=== PATIENT | female | born 1980 | race Caucasian/White ===

== ENCOUNTER → 2018-05-27 | Outpatient (CLI) | payer BC ==
[2018-05-27 13:48] LABS: BASOPHILS % 0.6 % (0.0-2.0); EOSINOPHILS % 1.3 % (0.0-5.0); HEMATOCRIT. 38.4 % (36.0-48.0); HEMOGLOBIN. 13.1 g/dL (12.0-16.0); LYMPHOCYTES % 24.5 % (20.0-50.0); MEAN CORPUSCULAR HEMOGLOBIN 31.5 pg (28.0-32.0); MEAN CORPUSCULAR VOLUME 92.3 fL (81.0-99.0); MEAN PLATELET VOLUME 7.3 fl (7.4-10.4); MONOCYTES % 5.7 % (2.0-8.0); NEUTROPHILS % 67.9 % (40.0-76.0); PLATELET 278 x1000/uL (130-400); RED BLOOD CELL COUNT 4.16 mill/uL (4.2-5.4); RED CELL DISTRIBUTION WIDTH 12.7 % (11.6-14.6)
[2018-05-27 13:51] LABS: CLARITY URINE CLEAR (CLEAR); COLOR URINE YELLOW (YELLOW); KETONES URINE NEGATIVE (NEGATIVE); LEUKOCYTE ESTERASE URINE NEGATIVE (NEGATIVE); NITRITE URINE NEGATIVE (NEGATIVE); OCCULT BLOOD URINE NEGATIVE (NEGATIVE); PROTEIN URINE NEGATIVE (NEGATIVE); UROBILINOGEN URINE 0.2 E.U./dL (0.2-1.0)
[2018-05-27 13:58] LABS: CHLORIDE 107 mEq/L (98-107)
[2018-05-27 14:05] LABS: LDL CHOLESTEROL 112 mg/dL (5-100)
[2018-05-27 14:06] LABS: HDL CHOLESTEROL 54 mg/dL (40-59)
[2018-05-27 14:07] LABS: T4 FREE 0.87 ng/dL (0.76-1.46)
[2018-05-28 09:06] LABS: VITAMIN D 25-OH 18.4 ng/mL (30.0-100.0)
[2018-05-28 13:11] LABS: HIV SCREEN 4G Non Reactive (Non Reactive)
== END | disposition home or self-care (01) ==
LOC: LAB 13:05
DX: Z00.01 Encounter for general adult medical examination with abnormal findings (principal)
CPT/HCPCS: 36415; 80061; 82306; 83036; 84439; 84443; 86592; 87389

== ENCOUNTER → 2021-01-17 | Outpatient (CLI) | payer BC | END | disposition home or self-care (01) | LOC: MAMMO 10:55 | DX: Z12.31 Encounter for screening mammogram for malignant neoplasm of breast (principal) | CPT/HCPCS: 77063; 77067 ==

== ENCOUNTER 2021-07-03 18:57 | Emergency (ER) | payer OTHER, BC ==
[~2021-07-03] VITALS: Ht 167.6 cm; Wt 63.5 kg
[2021-07-03] MEDS ORDERED: HEPATITIS B IMMUNE GLOBULIN 220 UNIT/ML IM ONE (19:30)
[2021-07-03] MEDS ORDERED: RALT400T PO (19:39)
[2021-07-03] MEDS ORDERED: EMTR1TAB11 MT (19:39)
[2021-07-03] MEDS ORDERED: EMTRICITABINE 200MG CAPSULE PO ONE (19:45)
[2021-07-03] MEDS ORDERED: RALTEGRAVIR 400MG TABLET PO ONE (19:45)
[2021-07-03] MEDS ORDERED: TENOFOVIR 300MG TABLET PO ONE (19:45)
[2021-07-03 19:46] VITALS: BP 125/76
== END 2021-07-03 22:04 | disposition home or self-care (01) ==
LOC: ER 18:57
DX: Z20.5 Contact with and (suspected) exposure to viral hepatitis (principal); S61.231A Puncture wound without foreign body of left index finger without damage to nail, initial encounter; W46.1XXA Contact with contaminated hypodermic needle, initial encounter; Y93.89 Activity, other specified; Y92.238 Other place in hospital as the place of occurrence of the external cause; Y99.0 Civilian activity done for income or pay
CPT/HCPCS: 90371; 99283

== ENCOUNTER → 2022-09-18 | Outpatient (CLI) | payer BC ==
[~2022-09-18] MED LIST: EMTR1TAB11 MT; RALT400T PO
[2022-09-18 10:49] LABS: CLARITY URINE CLEAR (CLEAR); COLOR URINE YELLOW (YELLOW); KETONES URINE NEGATIVE (NEGATIVE); LEUKOCYTE ESTERASE URINE NEGATIVE (NEGATIVE); NITRITE URINE NEGATIVE (NEGATIVE); OCCULT BLOOD URINE NEGATIVE (NEGATIVE); PROTEIN URINE NEGATIVE (NEGATIVE); SPECIFIC GRAVITY URINE 1.007 (1.005-1.030); UROBILINOGEN URINE 0.2 E.U./dL (0.2-1.0)
[2022-09-18 11:16] LABS: BASOPHILS % 0.6 % (0.0-2.0); EOSINOPHILS % 0.6 % (0.0-5.0); HEMATOCRIT. 36.3 % (36.0-48.0); HEMOGLOBIN. 12.6 g/dL (12.0-16.0); LYMPHOCYTES % 21.2 % (20.0-50.0); MEAN CORPUSCULAR HEMOGLOBIN 31.5 pg (28.0-32.0); MEAN CORPUSCULAR VOLUME 90.3 fL (81.0-99.0); MEAN PLATELET VOLUME 7.6 fl (7.4-10.4); NEUTROPHILS % 70.6 % (40.0-76.0); PLATELET 307 x1000/uL (130-400); RED BLOOD CELL COUNT 4.02 mill/uL (4.2-5.4); RED CELL DISTRIBUTION WIDTH 12.8 % (11.6-14.6)
[2022-09-18 11:51] LABS: CHLORIDE 109 mEq/L (98-107)
[2022-09-18 12:11] LABS: HDL CHOLESTEROL 41 mg/dL (40-59); LDL CHOLESTEROL 113 mg/dL (5-100); T4 FREE 0.77 ng/dL (0.76-1.46)
[2022-09-19 08:11] LABS: HEPATITIS C AB Non Reactive (Non Reactive); HIV SCREEN 4G Non Reactive (Non Reactive)
== END | disposition home or self-care (01) ==
LOC: MAMMO 10:01
DX: Z12.31 Encounter for screening mammogram for malignant neoplasm of breast (principal); Z00.00 Encounter for general adult medical examination without abnormal findings
CPT/HCPCS: 36415; 77067; 80048; 80061; 81003; 83036; 84439; 84443; 85025; 86592; 86706; 86803; 87389; 87491; 87536

== ENCOUNTER → 2024-07-24 | Outpatient (CLI) | payer BC | END | disposition home or self-care (01) | LOC: MAMMO 07:23 | DX: Z12.31 Encounter for screening mammogram for malignant neoplasm of breast (principal); R92.333 Mammographic heterogeneous density, bilateral breasts | CPT/HCPCS: 77063; 77067 ==